=== PATIENT | female | born 1970 ===

== ENCOUNTER 2017-02-14 09:49 | Emergency (ER) | payer OTHER ==
[2017-02-14 10:13] VITALS: BMI 20.5
[2017-02-14 10:21] LABS: HCG,QUALITATIVE URINE NEGATIVE (NEGATIVE)
[2017-02-14 10:40] LABS: SQUAMOUS EPITHIAL 4 /hpf (0-5); URINE BILIRUBIN NEGATIVE (NEGATIVE); URINE BLOOD NEGATIVE (NEGATIVE); URINE CALCIUM OXALATE CRYSTALS OCC /hpf (<OCC); URINE CLARITY Clear (Clear); URINE COLOR Yellow (YELLOW); URINE GLUCOSE (UA) NORMAL (Normal); URINE LEUKOCYTE ESTERASE NEG Leu/uL (Negative); URINE NITRATE NEGATIVE (NEGATIVE); URINE PROTEIN 2+ mg/dL (NEGATIVE); URINE UROBILINOGEN NORMAL mg/dL (0.2-1.0)
--- NOTE | 2017-02-14 10:59 | C.PDOC ---
History Of Present Illness 46-year-old female, presents to the emergency department with complaints of back pain. Patient states she has been experiencing B/L flank pain that started three days ago. Pain is intermittent in nature, and associated with nausea, and non-bloody/non-bilious vomiting. patient states she took Gas-X and Oxycontin with transient relief. Additionally, patient reports she has had a pelvic mass, that has been increasing in size over the past several weeks. She is scheduled for surgery on 02/25. Denies fevers, change in bowel habits, vaginal discharge/ bleeding or any other associated symptoms. No other complaints at this time. Time Seen by Provider: 02/14/17 10:24 Chief Complaint (Nursing): Back Pain History Per: Patient History/Exam Limitations: no limitations Onset/Duration Of Symptoms: Days Current Symptoms Are (Timing): Still Present Past Medical History Reviewed: Historical Data, Nursing Documentation, Vital Signs Vital Signs: Last Vital Signs Temp 97.7 F 02/14/17 16:25 Pulse 92 H 02/14/17 16:25 Resp 20 02/14/17 16:25 BP 103/77 02/14/17 16:25 Pulse Ox 100 02/14/17 16:41 - [facility] Procedures CYSTOSCOPY NEC (03/24/13) REMOV URETERAL DRAIN (03/24/13) RETROGRADE PYELOGRAM (03/16/13) TU REMOV URETER OBSTRUCT (03/24/13) URETERAL CATHETERIZATION (03/24/13) Family History: States: Unknown Family Hx - Social History Hx Alcohol Use: No Hx Substance Use: No - Immunization History Hx Tetanus Toxoid Vaccination: No Hx Influenza Vaccination: No Hx Pneumococcal Vaccination: No Review Of Systems Except As Marked, All Systems Reviewed And Found Negative. Constitutional: Negative for: Fever, Chills Cardiovascular: Negative for: Chest Pain, Palpitations Gastrointestinal: Positive for: Nausea, Vomiting, Abdominal Pain Musculoskeletal: Positive for: Back Pain Skin: Negative for: Rash Physical Exam - Physical Exam Appears: Non-toxic, No Acute Distress Skin: Warm, Dry, No Rash Head: Atraumatic, Normacephalic Eye(s): bilateral: Normal Inspection, PERRL, EOMI Nose: Normal Oral Mucosa: Moist Lips: Normal Appearing Throat: No Erythema, No Exudate Neck: Normal ROM, Supple Chest: Symmetrical, No Tenderness Cardiovascular: Rhythm Regular, No Murmur Respiratory: Normal Breath Sounds, No Accessory Muscle Use Gastrointestinal/Abdominal: Bowel Sounds (active), Soft, Tenderness ((+) mild diffuse), Mass, Distention, No Guarding, No Rebound, Other (Pelvic mass. ) Back: CVA Tenderness (Right), No Vertebral Tenderness, No Paraspinal Tenderness Extremity: Normal ROM, No Pedal Edema, No Swelling Neurological/Psych: Oriented x3, Normal Speech, Normal Motor Gait: Steady ED Course And Treatment - Laboratory Results Result Diagrams: 02/14/17 11:06 02/14/17 11:06 O2 Sat by Pulse Oximetry: 100 (on RA) Pulse Ox Interpretation: Normal Medical Decision Making Medical Decision Making: Plan: * CT Abd/Pel * CMP, Lipase * CBC * Toradol * Urine Culture * UA/U-Preg * Reassess and Disposition On first re-eval, the patient states that she still has pain after Toradol and IV lidocaine. Morphine Ordered. Morphine causes nausea to worsen so Zofran is ordered. The case was discussed with Dr. Smith (patient's surgeon) who states that the patient is safe for discharge, is scheduled for surgeon on 02/25/17, and she will evaluate the patient in the office. CT scan and lab results were faxed to the office. On re-exam, the patient remains stable. Lungs are CTA, heart is RRR, ambulatory in the Ed with steady gait. Abdomen is soft, non-tender and tolerating PO well. Follow up with the medical doctor/clinic within 1-2 days, Return if worsened Disposition - Disposition Referrals: Lina Ortiz MD [Medical Doctor] - Disposition: HOME/ ROUTINE Disposition Time: 16:39 Condition: GOOD Additional Instructions: call tomorrow without fail for appointment. Follow up with the medical doctor within 1-2 days. Return if worsened. Prescriptions: Ondansetron ODT [Zofran ODT] 1 odt PO BID PRN #20 odt PRN Reason: Nausea/Vomiting oxyCODONE/Acetaminophen [Percocet 5/325 mg Tab] 1 tab PO QID PRN #20 tab PRN Reason: Pain Instructions: Ovarian Cancer (GEN), Ascites (ED) - Clinical Impression Clinical Impression: Ovarian mass, Vomiting - Scribe Statement The provider has reviewed the documentation as recorded by the Scribe (Brian Bowie) All medical record entries made by the Scribe were at my direction and personally dictated by me. I have reviewed the chart and agree that the record accurately reflects my personal performance of the history, physical exam, medical decision making, and the department course for this patient. I have also personally directed, reviewed, and agree with the discharge instructions and disposition.
[2017-02-14] MEDS ORDERED: Sodium Chloride 0.9% 1,000 ML IV STA (11:04)
[2017-02-14 11:16] LABS: ALBUMIN 3.2 g/dL (3.5-5.0)
[2017-02-14] MEDS ORDERED: Sodium Chloride 0.9% 1,000 ML ONE (11:17)
[2017-02-14 11:19] LABS: AST/SGOT 47 U/L (14-36); GFR AFRICAN-AMERICAN > 60; GFR NON-AFRICAN AMERICAN > 60
[2017-02-14 11:20] LABS: ALT/SGPT 52 U/L (9-52); BLOOD UREA NITROGEN 13 mg/dL (7-17); CALCIUM 8.4 mg/dl (8.6-10.4); LIPASE 28 U/L (23-300)
[2017-02-14 11:22] LABS: BASO # 0.1 K/uL (0.0-0.2); BASO % 0.9 % (0.0-2.0); EOS # 0.1 K/uL (0.0-0.7); EOS % 0.8 % (0.0-4.0); HEMOGLOBIN 9.3 g/dL (11.0-16.0); LYMPH # 1.1 K/uL (1.0-4.3); LYMPH % 11.7 % (20.0-40.0); MEAN CELL VOLUME 79.7 fL (81.0-99.0); MEAN CORPUSCULAR HEMOGLOBIN 24.7 pg (27.0-31.0); MEAN PLATELET VOLUME 8.6 fL (7.2-11.7); MONO # 0.7 K/uL (0.0-0.8); MONO % 7.5 % (0.0-10.0); NEUT # 7.1 K/uL (1.8-7.0); NEUT % 79.1 % (50.0-75.0); RBC 3.75 Mil/uL (3.80-5.20); RED CELL DISTRIBUTION WIDTH 15.4 % (11.5-14.5)
[2017-02-14] MEDS ORDERED: LIDOCAINE IV STA (11:48)
[2017-02-14] MEDS ORDERED: SODIUM CHLORIDE 0.9% IV STA (11:48)
[2017-02-14] MEDS ORDERED: Iohexol 350mg/ml 100 ML ONE (11:57)
[2017-02-14] MEDS ORDERED: Morphine 4 MG/ML VIAL ONE ×2 (12:49→14:14)
--- NOTE | 2017-02-14 15:56 | CT ---
PROCEDURE: CT scan of the abdomen and pelvis dated 02/14/2017. HISTORY: Right-sided flank pain. . Abd mass, stone vs, mets COMPARISON: Comparison made with CT scan abdomen and pelvis 08/24/2012 TECHNIQUE: Contiguous axial images of the abdomen and pelvis performed before and following intravenous injection of approximately 100 cc Visipaque 350 contrast material. Additional 2 dimensional sagittal and coronal reformats provided. This CT exam was performed using one or more of the following dose reduction techniques: Automated exposure control, adjustment of the mA and/or kV according to patient size, and/or use of iterative reconstruction technique. Total exam DLP = 664.08 mGy-cm. FINDINGS: LOWER THORAX: Lung bases are clear without focal consolidation effusion or basilar pneumothorax. There is a small to medium size hiatal hernia with wall thickening of the distal esophagus that could be due to protrusion of gastric mucosa. Esophagitis or other intrinsic/ invasive wall lesion including esophageal carcinoma should be excluded. Followup endoscopy may be should be performed if clinically indicated. Heart size within range of normal. No pericardial effusion. LIVER: The liver is upper limits of normal -borderline enlarged measuring approximately 18.3 cm in CC dimension. . Re- demonstrated is a very tiny focus low attenuation superior aspect right lobe liver best seen on axial image number 22 essentially unchanged in appearance from prior study. In addition, there is subtle low-attenuation changes seen in the left lobe liver bordering the fissure that may represent localize fat. Possibility of a small cyst or hemangioma cannot be excluded. . Portal and splenic veins are opacified. GALLBLADDER AND BILE DUCTS: Gallbladder is physiologically distended. No evidence of intraluminal gallbladder calculi. PANCREAS: Visualized portions of the pancreas appear grossly unremarkable. No obvious pancreatic mass collection or calcification. Pancreatic duct is visible lobe does not appear significantly dilated. SPLEEN: Spleen exhibits normal size and attenuation pattern without mass collection or calcification. ADRENALS: No obvious adrenal lesions. KIDNEYS AND URETERS: Kidneys demonstrate symmetric nephrograms. No evidence of nephrolithiasis or hydronephrosis. Re- demonstrated are multiple nonobstructing calculi seen within the left kidney, the largest measuring approximately 2.75 mm in the midpole region with a 2 adjacent smaller calculi. Several additional tiny calculi seen in the lower pole left kidney and at least 1 punctate calcification upper pole right kidney left kidney. Additionally, there are 2 elliptical shaped low-attenuation foci mid to lower pole left kidney the largest measuring 17 mm and the 2nd measuring 12.3 mm which may represent renal cyst the Hounsfield units in the mid 20s could be volume averaging. Followup ultrasound could be performed to confirm. . There are several small calculi seen in the right kidney the largest in the lower pole measuring 3.9 mm and the 2nd measuring 3.2 mm. Tiny - punctate calcification midpole right kidney. There are at least 2 low-attenuation foci seen in the mid to lower pole likely representing cysts as well the largest measuring approximately 9.1 mm and 2 additional measuring approximately 4.8 mm BLADDER: Urinary bladder appears to be compressed by a large mass density ascites fluid. No definitive evidence of intraluminal urinary bladder calculi. REPRODUCTIVE: There is a large partially solid and predominantly cystic mass with multiple septations which measures approximately 20 cm cc x 18.4 cm t x 10 cm ap. This lesion which is of uncertain etiology appears to abut the uterus and probably ovarian in origin and likely malignant. There is also an additional exophytic or separate component located within the cul de sac that measures approximately 8.2 cm t by 6.8 cm ap x 5.0 cm cc. Very large amount of abdominal and pelvic ascites present. APPENDIX: Appendix is not seen with certainty on this exam. BOWEL: evaluation of the bowel is limited due to the lack of oral contrast material as well as low very large amount of abdominal and pelvic ascites. The stomach is partially distended with food debris liquid and air. There is no evidence of acute mechanical small bowel obstruction however multiple loops of small bowel do appear to exhibit mild wall thickening possibly due to ascites. There may also be some wall thickening of the descending colon as well secondary to ascites however clinical correlation recommended. No evidence of acute mechanical small bowel obstruction. Stool and air seen throughout the colon however gibbons of the colon are poorly identified. PERITONEUM: Large amount of abdominal and pelvic ascites. LYMPH NODES: Evaluation for adenopathy is limited due to large pelvic and abdominal mass and ascites. There does appear to be multiple small to medium size retroperitoneal lymph nodes. VASCULATURE: Unremarkable. No aortic aneurysm. BONES: No fracture or destructive lesion. OTHER FINDINGS: None. IMPRESSION: Large predominantly cystic mass with septations and smaller solid components, the epicenter of which appears to be located in the pelvis extending into the of mid abdomen. There is a a 2nd that either exophytic or satellite component within the cul de sac. . The lesion is felt to be ovarian in origin an likely malignant given the amount of ascites. Clinical correlation recommended. There is a very large amount of abdominal and pelvic ascites. Mild hepatomegaly. Findings were discussed with emergency room KERRI Polanco at approximately 3:45 p.m. with written down and read back verification.
[2017-02-14 16:26] VITALS: BP 103/77; PULSE 92; RESP 20; TEMP 97.7
[2017-02-14 16:41] VITALS: O2SAT 100
== END 2017-02-14 17:01 | disposition home or self-care (01) ==
LOC: C.ER 09:49
DX: N83.9 Noninflammatory disorder of ovary, fallopian tube and broad ligament, unspecified (principal)
CPT/HCPCS: 74178; 80053; 81001; 83690; 84703; 85025; 87086; 96374; 96375; 96376; 99284; J1885; J2001; J2270; J2405; J7040; Q9967